=== PATIENT | male | born 1960 | race Caucasian/White ===

== ENCOUNTER 2017-07-28 12:34 | Emergency (ER) | payer SELFPAY ==
[~2017-07-28] VITALS: Ht 188 cm; Wt 99.0 kg
[2017-07-28 12:45] VITALS: BP 157/92; PULSE 83; RESP 16; O2SAT 97
[2017-07-28 12:46] VITALS: TEMP 98.2
[2017-07-28] MEDS ORDERED: ZANT150T2 PO (12:56)
[2017-07-28] MEDS ORDERED: LISI10TA3 PO (12:56)
--- NOTE | 2017-07-28 13:11 | PD ---
HPI Chief Complaint: Eye Problems/Injury Time Seen by Provider: 12:41 Travel History International Travel<30 days: No Contact w/Intl Traveler<30days: No Traveled to known affect area: No History of Present Illness HPI The patient is a 57-year-old male who presents to the emergency department after being evaluated at urgent care for possible retinal detachment. The patient states his symptoms started 3 days ago while he was driving to [place]. The patient developed some flashes and floaters that were located in the right eye, upper outer quadrant, and now describes his flashes and floaters as a spider web. He denies any acute visual changes and denies wearing glasses or contacts. He denies any pain of the right eye, photophobia, or pain with extraocular movements. He denies any known history of multiple sclerosis. Symptoms are mild to moderate, started 3 days ago, and there are no current alleviating or exacerbating factors. PFSH Past Medical History Cardiovascular Problems: Yes (htn on meds) GERD: Yes Hypertension: Yes Medical other: Yes (chronic back pain) Tetanus Vaccination: < 5 Years Influenza Vaccination: No Past Surgical History Other Surgery: Yes (rigth foot 5th digit removal for fb as a child) Social History Alcohol Use: Yes (occas. beer or mix drinks) Tobacco Use: No (quit 10 yrs ago smoked for 20+ yrs) Substance Use: No Allergies-Medications (Allergen,Severity, Reaction): Coded Allergies: No Known Allergies (Verified Allergy, Unknown, 07/28/17) Reported Meds & Prescriptions Reported Meds & Active Scripts Active Reported Zantac (Ranitidine HCl) 150 Mg Tab 150 Mg PO DAILY Lisinopril 10 Mg Tab 10 Mg PO DAILY Review of Systems Eyes: Positive: Visual changes, Other (as noted in history of present illness) , No: Redness, Pain, Tearing HENT: No: Headaches Gastrointestinal: No: Nausea, Vomiting Neurologic: No: Dizziness, Focal Abnormalities, Headache Physical Exam Narrative GENERAL: Awake, alert, very pleasant 57-year-old male who appears his stated age and is in no acute respiratory distress. SKIN: Focused skin assessment warm/dry. HEAD: Atraumatic. Normocephalic. EYES: Pupils equal and round. Pupils are 4 mm bilateral, equal, round, and reactive. EOMs are intact. Patient is able to see fingers at a distance of 2 feet without difficulty. Vision in the left eye was 20/25, right 20/70, bilateral 20/25. There is no erythema or injection of the conjunctiva noted. Funduscopic examination was somewhat limited. ENT: No nasal bleeding or discharge. Mucous membranes pink and moist. NECK: Trachea midline. No JVD. MUSCULOSKELETAL: No obvious deformities. No clubbing. No cyanosis. No edema. NEUROLOGICAL: Awake and alert. No obvious cranial nerve deficits. Motor grossly within normal limits. Normal speech. PSYCHIATRIC: Appropriate mood and affect; insight and judgment normal. Data Data Last Documented VS Vital Signs Date Time Temp Pulse Resp B/P (MAP) Pulse Ox O2 Delivery O2 Flow Rate FiO2 07/28/17 12:54 16 07/28/17 12:46 98.2 07/28/17 12:45 83 157/92 (113) 97 MDM Medical Decision Making Medical Screen Exam Complete: Yes Emergency Medical Condition: Yes Medical Record Reviewed: Yes Differential Diagnosis Differential diagnosis includes retinal detachment, flash or/floaters, ocular migraine, seizure aura. Narrative Course The patient's history is consistent with flash or/floaters, possible retinal detachment. I discussed the patient with the on-call senior officer, Dr. Prasad , who took the patient's phone number and will call him to meet her at his office later today for formal ocular exam. The patient is comfortable with this plan of care and disposition. The patient was given the address to Dr. Praasd's office, [address] [place] [address]. He will meet the senior officer later today. Diagnosis Primary Impression: Vitreous floaters of right eye Referrals: Leanne Prasad MD Follow-up in the office later today Additional Instructions: Follow-up with Dr. Prasad later today at her office at [address] [place] [address]. Disposition: 01 DISCHARGE HOME Condition: Stable Renato Langford MD Jul 28, 2017 13:11
== END 2017-07-28 13:25 | disposition home or self-care (01) ==
LOC: PHED 12:34
DX: H43.391 Other vitreous opacities, right eye (principal); I10 Essential (primary) hypertension; K21.9 Gastro-esophageal reflux disease without esophagitis; Z87.891 Personal history of nicotine dependence
CPT/HCPCS: 99282